=== PATIENT | male | born 1980 | race Caucasian/White ===

== ENCOUNTER 2022-09-10 18:29 | Emergency (ER) | payer OTHER ==
[2022-09-10] MEDS: HYDROcodone/APAP 7.5 MG/325 MG (LORTAB, LORCET PLUS) TABLET PO STA (18:59)
--- NOTE | 2022-09-10 19:01 | ED Upper Extremity ---
General Chief Complaint: Upper Extremity Stated Complaint: RIGHT PINKY FINGER INJURY Nursing Triage Note: PT ARRIVAL TO ER VIA PRIVATE VEHICLE WITH COMPLAINT OF RIGHT 5TH FINGER INJURY. SMASHED FINGER IN DOOR OF VEHICLE THIS AM. PAIN AT A 8/10. Source: patient Exam Limitations: no limitations History of Present Illness Date Seen by Provider: Sep 10, 2022 Time Seen by Provider: 18:59 Initial Comments Patient is a 42-year-old male who presents ED with right little finger pain. Patient states he slammed his finger in a car door this morning. Noted swelling and bruising distally to the right little finger. Nail is intact. He reports normal active range of motion and denies using ice or take anything for pain. No history of previous fracture to this finger. Allergies and Home Medications Allergies Coded Allergies: No Known Drug Allergies (Unverified , 09/10/22) Patient Home Medication List Home Medication List Reviewed: Yes Hydrocodone/Acetaminophen (Hydrocodone-Acetamin 5-325 mg) 5 Mg-325 Mg Tablet, 1 TAB PO Q4H PRN for PAIN-MODERATE (5-7) Prescribed by: JAMI MCLAUGHLIN on 09/10/221913 Review of Systems Constitutional: No chills, No diaphoresis, No malaise, No weakness EENTM: No ear pain, No blurred vision, No mouth pain, No nose pain, No throat pain, No throat swelling Respiratory: No cough, No dyspnea on exertion Cardiovascular: No chest pain Gastrointestinal: No abdominal pain, No diarrhea, No nausea, No vomiting Genitourinary: No decreased output, No discharge Musculoskeletal: joint pain, joint swelling Skin: change in color All Other Systems Reviewed Negative Unless Noted: Yes Past Qhykrfe-Biykml-Fphczj Hx Patient Social History Tobacco Use?: Yes Tobacco type used: Cigarettes Smoking Status: Current Everyday Smoker Use of E-Cig and/or Vaping dev: No Substance use?: No Alcohol Use?: No Pt feels they are or have been: No Immunizations Up To Date Influenza Vaccine Up-to-Date: Yes; Up-to-Date Physical Exam Vital Signs Vital Signs - First Documented 09/10/22 18:49 Temp 36.8 Pulse 78 Resp 18 B/P (MAP) 174/93 (120) Pulse Ox 98 O2 Delivery Room Air Capillary Refill : Less Than 3 Seconds Height, Weight, BMI Height: '" Weight: lbs. oz. kg; BMI Method: General Appearance: WD/WN, no apparent distress HEENT: PERRL/EOMI, normal ENT inspection, TMs normal, pharynx normal Neck: non-tender, full range of motion, supple, normal inspection Cardiovascular: regular rate, rhythm, no edema, no gallop, no JVD Respiratory: chest non-tender, lungs clear, normal breath sounds, no respiratory distress Gastrointestinal: normal bowel sounds, non tender, soft, no organomegaly Back: normal inspection, no CVA tenderness, no vertebral tenderness Hand: normal ROM (Normal active range of motion of the right distal PIP and DIP joint), Right, bone tenderness (Right distal little finger phalanx. 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 (09/10/22 18:49) Vital Signs/I&O 09/10/22 09/10/22 18:49 19:07 Temp 36.8 36.8 Pulse 78 78 Resp 18 18 B/P (MAP) 174/93 (120) 174/93 Pulse Ox 98 98 O2 Delivery Room Air Room Air Blood Pressure Mean: 120 Departure Communication (PCP) X-ray of the right little finger negative for fracture. No evidence of Subungual hematoma. Normal active range of motion of the right distal DIP. Patient was given dose of pain medication. Took ibuprofen right before arrival. Ice was applied. Recommend ice 4 times a day for the next 2 to 3 days. Morgan tape for comfort. Will discharge a few days worth of pain medication. Recommend continue ibuprofen. If any worsening symptoms return back to ED for further evaluation. Impression Primary Impression: Finger contusion Disposition: HOME, SELF-CARE Condition: Stable Departure-Patient Inst. Decision time for Depature: 19:11 Referrals: [facility] [place] [facility],LOCAL PHYSICIAN (PCP) Primary Care Physician Patient Instructions: Common Finger Injuries (DC) Add. Discharge Instructions: Recommend ice for the next 3 to 4 days at least 20 minutes 4 times a day. Pain medication as needed. Recommend anti-inflammatories help with swelling such as ibuprofen All discharge instructions reviewed with patient and/or family. Voiced understanding. Scripts Hydrocodone/Acetaminophen (Hydrocodone-Acetamin 5-325 mg) 5 Mg-325 Mg Tablet 1 TAB PO Q4H PRN for PAIN-MODERATE (5-7), #6 TAB Prov: KVNG JONES 09/10/22 KVNG JONES Sep 10, 2022 19:01
--- NOTE | 2022-09-10 19:02 | Diagnostic Imaging Report ---
INDICATION: Crush injury with pain to the 5th finger. FINDINGS: AP radiograph of the right hand and three views dedicated to the right 5th finger were performed. The terminal tuft of the 5th finger intact. The remaining phalanges and metacarpal intact. The remaining osseous structures of the hand in the frontal projection show no fracture. IMPRESSION: No fracture or retained foreign body identified. Dictated by: Dictated on workstation # [id number]
[2022-09-10 19:07] VITALS: BP 174/93
[2022-09-10] MEDS ORDERED: ACHD5005 PO (19:13)
== END 2022-09-10 19:17 | disposition home or self-care (01) ==
LOC: ER 18:32
DX: S60.051A Contusion of right little finger without damage to nail, initial encounter (principal); F17.210 Nicotine dependence, cigarettes, uncomplicated; Z28.310 Unvaccinated for COVID-19; W23.0XXA Caught, crushed, jammed, or pinched between moving objects, initial encounter
CPT/HCPCS: 73140